=== PATIENT | female | born 1975 | race Caucasian/White ===

== ENCOUNTER 2016-03-10 19:04 | Emergency (ER) | payer MEDICAID, OTHER ==
[~2016-03-10] VITALS: Ht 160 cm; Wt 53.5 kg
[2016-03-10 19:36] VITALS: Ht 160 cm; Wt 53.5 kg
[2016-03-10 23:58] LABS: BASOPHILS % 0.6 % (0.0-2.0); EOSINOPHILS % 0.3 % (0.0-7.0); HEMOGLOBIN 12.4 g/dl (12.0-16.0); MEAN CORPUSCULAR HEMOGLOBIN 29.9 pg (29.0-33.0); MEAN CORPUSCULAR HGB CONC 33.4 g/dl (32.0-37.0); MEAN CORPUSCULAR VOLUME 89.4 fl (82.0-101.0); MONOCYTE # 0.6 10^3/ul (0.3-0.9); MONOCYTES % 8.8 % (0.0-11.0); NEUTROPHIL # 4.6 10^3/ul (1.6-7.5); NEUTROPHILS % 63.3 % (39.0-77.0); PLATELET COUNT 208 10^3/UL (140-440); RED BLOOD COUNT 4.14 10^6/ul (4.20-5.40); RED CELL DISTRIBUTION WIDTH 14.2 % (11.5-14.5); UNCORRECTED WBC 7.3 10^3/ul (4.8-10.8); WHITE BLOOD COUNT 7.3 10^3/ul (4.8-10.8)
[2016-03-10 23:59] LABS: ADD UMIC YES; URINE BILIRUBIN (Dip) NEGATIVE (NEGATIVE); URINE BLOOD (Dip) 3+ (NEGATIVE); URINE COLOR LT. YELLOW (YELLOW); URINE GLUCOSE (Dip) NEGATIVE (NEGATIVE); URINE KETONES (Dip) 40 (NEGATIVE); URINE LEUKOCYTE ESTERASE (Dip) TRACE (NEGATIVE); URINE NITRITE (Dip) NEGATIVE (NEGATIVE); URINE TOTAL PROTEIN (Dip) TRACE (NEGATIVE); URINE UROBILINOGEN (Dip) 0.2 E.U./dL (0.1-1.0)
[2016-03-11] LABS: CONDITION 1
--- NOTE | 2016-03-11 00:07 | RADRPT ---
PROCEDURE: US OB. CLINICAL INDICATION: TECHNIQUE: Transabdominal and transvaginal views of the pelvis are available for review. COMPARISON: There are no similar studies submitted for comparison. FINDINGS: There are twin intrauterine gestations. Fetus A has a crown-rump length of 3.6 mm, corresponding to an estimated gestational age of 6 weeks 0 days. A yolk sac is present. No cardiac activity seen. Fetus B has a crown-rump length of 3.5 mm, corresponding to an estimated gestational age of 6 weeks 0 days. A yolk sac is present. No cardiac activity is seen. The right ovary is not seen. The left ovary is normal in appearance and measures 2.6 x 1.9 x 2.1 cm . No pelvic free fluid is seen. IMPRESSION: Twin intrauterine gestations of 6 weeks 0 days without visible cardiac activity. Continued follow-u p is recommended. RPTAT: HIKT .Rhett Ross MD, MD Date Time Electronically viewed and signed by .Rhett Ross MD, on 03/11/2016 00:06 .T/
[2016-03-11 00:24] LABS: BACTERIA,URINE MODERATE; SQUAMOUS EPITHELIAL CELL,UR MODERATE; URINE RBCS >50 /HPF (0)
--- NOTE | 2016-03-11 00:54 | ERD ---
ER Documentation Chief Complaint Date/Time DATE: 03/11/16 TIME: 00:51 Chief Complaint 7 weeks , having vaginal spotting since yesterday, denies pain. HPI This is a 41-year-old female presents to the ER with vaginal bleeding. Patient states that she has been spotting for the last 90 days however it resolved for 3 days and then began again today. Patient denies any pelvic pain. She denies any urinary frequency or dysuria she denies any vaginal discharge. A0. Her last normal menstrual period was on January 02, 2016 ROS 12 point review of systems was done, all negative except per HPI. Allergies Allergies: Coded Allergies: No Known Allergy (Unverified , 03/10/16) PMhx/Soc Hx Alcohol Use: No Hx Substance Use: No Hx Tobacco Use: No Physical Exam Vitals Vital Signs Date Time Temp Pulse Resp B/P Pulse Ox O2 Delivery O2 Flow Rate FiO2 03/10/16 19:36 99.3 84 20 118/62 98 Physical Exam GENERAL: The patient is well developed and appropriate for usual state of health , in no apparent distress. HEENT: Atraumatic. CHEST: Clear to auscultation bilaterally. There are no rales, wheezes or rhonchi. HEART: Regular rate and rhythm. No murmurs, clicks, rubs or gallops. BACK: No midline or flank tenderness. NEURO: Alert and oriented. SKIN: There is no apparent rash or petechia. The skin is warm and dry. Result Diagram: 03/10/16 2325 Results 24 hrs Laboratory Tests Test 03/10/16 23:25 Basophils # 0.010^3/ul Basophils % 0.6% Beta HCG, Quantitative 37122.0mIU/ml Eosinophils # 0.010^3/ul Eosinophils % 0.3% Hematocrit 37.0% Hemoglobin 12.4g/dl Lymphocytes # 2.010^3/ul Lymphocytes % 27.0% Mean Corpuscular Hemoglobin 29.9pg Mean Corpuscular Hemoglobin Concent 33.4g/dl Mean Corpuscular Volume 89.4fl Mean Platelet Volume 8.0fl Monocytes # 0.610^3/ul Monocytes % 8.8% Neutrophils # 4.610^3/ul Neutrophils % 63.3% Nucleated Red Blood Cells # 0.010^3/ul Nucleated Red Blood Cells % 0.0/100WBC Platelet Count 45743^3/UL Red Blood Count 4.1410^6/ul Red Cell Distribution Width 14.2% Urine Bacteria MODERATE Urine Bilirubin NEGATIVE Urine Clarity SLIGHTLY CLOUDY Urine Color LT. YELLOW Urine Glucose NEGATIVE% Urine Hemoglobin 3+ Urine Ketones 40 Urine Leukocyte Esterase TRACE Urine Microscopic RBC >50/HPF Urine Microscopic WBC 2-5/HPF Urine Nitrite NEGATIVE Urine Specific [place] 1.025 Urine Squamous Epithelial Cells MODERATE Urine Total Protein TRACE Urine Urobilinogen 0.2 E.U./dL Urine pH 6.0 White Blood Count 7.310^3/ul Procedures/MDM Differential diagnosis: Threatened , missed , incomplete , ectopic , molar , UTI, pyelonephritis. At this time patient ultrasound states that there is a 20 intrauterine gestation at 6 weeks and 0 days at this time there is no cardiac activity. Both of the is intrauterine. Patient's blood work is noncontributory with no evidence of anemia or electrolyte abnormality. And there is no evidence for urinary tract infection. Patient urgently needs to follow-up with her [employer] or return to ER in 48 hours. She is to return to ER sooner if symptoms worsen. Plan was discussed with patient she understands and agrees with plan. Departure Diagnosis: Primary Impression: Vaginal bleeding in patient at less than 20 weeks ges... Condition: Stable Patient Instructions: Bleeding During Early Additional Instructions: Llame al doctor REGINALDO y donovan lyndsey IVETTE PARA DENTRO DE 1-2 PHELPS.Dgale a la secretaria que nosotros le instruimos hacer esta ivette.Avise o llame si hoff condicin se empeora antes de la ivette. Regresa aqui si peor o no mejor. ANASTACIO MENDOZA Mar 11, 2016 00:54
[2016-03-11 01:16] VITALS: BP 123/71; PULSE 89; RESP 18
== END 2016-03-11 01:16 | disposition home or self-care (01) ==
LOC: FTE 19:04
DX: O20.9 Hemorrhage in early pregnancy, unspecified (principal); Z3A.01 Less than 8 weeks gestation of pregnancy
CPT/HCPCS: 36415; 76801; 76817; 81001; 81003; 84702; 85025; 86900; 86901; Z7502